=== PATIENT | female | born 1960 | race Caucasian/White ===

== ENCOUNTER 2021-01-11 10:42 | Emergency (ER) | payer OTHER ==
[~2021-01-11] VITALS: Ht 175.3 cm; Wt 88.5 kg
[2021-01-11] MEDS ORDERED: HUMALOG100 UNIT/2 SUB-Q (13:56)
== END 2021-01-11 17:38 | disposition home or self-care (01) ==
LOC: ED 10:42
DX: E10.621 Type 1 diabetes mellitus with foot ulcer (principal); L97.521 Non-pressure chronic ulcer of other part of left foot limited to breakdown of skin; R06.02 Shortness of breath; J44.9 Chronic obstructive pulmonary disease, unspecified; I50.9 Heart failure, unspecified; I25.2 Old myocardial infarction; Z85.3 Personal history of malignant neoplasm of breast; Z90.710 Acquired absence of both cervix and uterus; Z95.1 Presence of aortocoronary bypass graft; Z95.5 Presence of coronary angioplasty implant and graft; Z88.0 Allergy status to penicillin; Z88.8 Allergy status to other drugs, medicaments and biological substances; Z89.431 Acquired absence of right foot
CPT/HCPCS: 73630; 80053; 80500; 85025; 85651; 94640; 99283-25; 99406

== ENCOUNTER 2021-01-25 16:35 | Inpatient (IN) | payer OTHER ==
[~2021-01-25] VITALS: Ht 175.3 cm; Wt 95.4 kg
[~2021-01-25 16:35] MED LIST: HUMALOG100 UNIT/2 SUB-Q
--- OUTSIDE RECORDS SUMMARY | 2021-01-25 16:42 | XMS ---
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 - 2 Visits in 30 Days CARE PROVIDERS There are no care providers on record at this time. Kanchan has no Care Guidelines for this patient. Miguel VISIT COUNT (12 MO.) 1 [facility] NOTE: Visits indicate total known visits. 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 - Acquired absence of both cervix and uterus - Non-pressure chronic ulcer of other part of left foot limited to breakdown of skin - Personal history of malignant neoplasm of breast - Presence of coronary angioplasty implant and graft - Chronic obstructive pulmonary disease, unspecified - Non-pressure chronic ulcer of other part of left foot limited to breakdown of skin [facility] COMPLAINT: - LEG PAIN - Foot Pain DIAGNOSES: - Unspecified otitis externa, left ear - Presence of unspecified artificial ankle joint - Periprosthetic fracture around other internal prosthetic joint, initial encounter - Otitis media, unspecified, left ear - Unspecified mastoiditis, unspecified ear INPATIENT VISIT TRACKING (12 MO.) No inpatient visits to display in this time frame [email or web address]
--- NOTE | 2021-01-25 21:40 | NUR ---
PT ARRIVES TO FLOOR VIA STRETCHER. PT ABLE TO STAND AND TRANSFER TO THE BED. PT DAUGHTER PRESENT WITH HER. MD TO ROOM TO SEE PT. ADMISSION PROCESS COMPLETE. L FOOT WITH WOUND BETWEEN GREAT AND 2ND TOES, AND X 2 ON INNER FOOT. AREAS CLEANSED AND COVERED WITH NONADHERENT DRESSING, KERLEX, AND COVERED WITH SOCK. AREAS ARE PAINFUL FOR PT, PT TOLERATED DRESSING CHANGE WELL. PT ORIENTED TO ROOM, CALL LIGHT USE, AND POC FOR THIS FLOOR. PT STATES UNDERSTANDING. DENIES QUESTIONS. IV FLUSHED WITH 10ML NS, NO BLOOD RETURN NOTED, FLUSHES WELL, WNL. ICE WATER PROVIED. PT DENIES FURTHER AT THIS TIME. CALL LIGHT IN REACH.
--- NOTE | 2021-01-25 23:36 | NUR ---
IN TO ASSIST WITH COMMODE NEEDS, BACK TO BED, NO FURTHER NEEDS
--- NOTE | 2021-01-26 00:12 | NUR ---
pt awakes easily, on room air, lungs dim at bases, sl L upper arm, patent, aware of 1600 fluid restriction. cbg 111, no coverage needed, up to bsc with assist, uses call lihgt, pleasant and cooperative. no c/o pain. edema to LE
--- NOTE | 2021-01-26 01:46 | NUR ---
Up to bsc, voided, coop wtih vitals and assesment, tele#[address], edema to le w/o changes. on room air, no c/o pain
--- NOTE | 2021-01-26 04:35 | NUR ---
Resting, eys closed, no distress. call light at hand reach, pt aware of fluid restriction
--- NOTE | 2021-01-26 06:16 | NUR ---
Pt has slept this shift. On room air, lungs with fine crackles upper lobes and at bases, no cough at this time. bruising over amrs and legs healing. edema LE 3+. R foot with surgical removed toes, ulcer on L toes covered with gauze. unsteady gait,elevated. up to BSC, voiding QS, SBA/FWW. alert and oriented. no c/o pain. aware of fluid restriction.
--- NOTE | 2021-01-26 07:30 | NUR ---
Shift report received from HAWK Shipman pt resting in bed safely w/ call light in reach. Pt denies any needs at this time.
[2021-01-26] MEDS ORDERED: BUMETANIDE1 MG PO (07:45)
[2021-01-26] MEDS ORDERED: LOSARTAN POTASS25 MG PO (07:46)
[2021-01-26] MEDS ORDERED: HYDROCODON-ACE1 EA10 PO (07:46)
[2021-01-26] MEDS ORDERED: METOPROLOL TART25 MG PO (07:47)
[2021-01-26] MEDS ORDERED: SPIRONOLACTONE25 MG PO (07:47)
[2021-01-26] MEDS ORDERED: NITROGLYCERIN0.4 MG SL (07:48)
[2021-01-26] MEDS ORDERED: LO-DOSE ASPIRIN81 MG PO (07:49)
[2021-01-26] MEDS ORDERED: FREESTYLE LIBR1 EAC2 (07:49)
--- NOTE | 2021-01-26 08:00 | NUR ---
Pt's CBG was 49 at 0730, pt given a cup of OJ to drink, CBG rechecked after 15 minutes now 64, pt given breakfast tray, CBG rechecked again after 15 minutes now 84. Pt was very diaphoretic but A+O x3, gown and bed linens changed. Pt no longer diaphoretic, states she feels better. SBA to [facility], now back in bed resting safely w/ call light in reach
--- NOTE | 2021-01-26 08:28 | NUR ---
PT ATE BREAKFAST IN BED. PT HAD BEEN OFFERED CHAIR SEVERAL TIMES AND REFUSED. CALL LIGHT WITHIN REACH, NO FURTHER NEEDS AT THIS TIME. WARM BLANKETS BROUGHT.
--- NOTE | 2021-01-26 09:11 | NUR ---
PT SITTING UP IN BED PLAYING ON PHONE. TOOK LUNCH ORDER. CALL LIGHT WITHIN REACH, NO FURTHER NEEDS AT THIS TIME.
--- NOTE | 2021-01-26 09:30 | NUR ---
Pt resting in bed safely w/ call light in reach. Morning assesment complete and scheduled meds given per provider order, pt denies any needs at this time. 3+ pitting edema bilat LE, legs elevated on pillows.
--- NOTE | 2021-01-26 12:00 | NUR ---
Pt sitting up in bed safely w/ call light in reach and legs elevated. Pt denies any needs at this time, scheduled meds given per provider orders.
[2021-01-26] MEDS ORDERED: NEURONTIN300 MG PO (12:47)
[2021-01-26] MEDS ORDERED: FUROSEMIDE40 MG PO (12:47)
[2021-01-26] MEDS ORDERED: HUMALOG100 UNITS/ SUB-Q (12:50)
[2021-01-26] MEDS ORDERED: METOCLOPRAMIDE10 MG PO (12:57)
--- NOTE | 2021-01-26 12:57 | NUR ---
MED REC COMPLETE
--- NOTE | 2021-01-26 13:02 | NUR ---
MED REC COMPLETE
--- NOTE | 2021-01-26 14:00 | NUR ---
Pt sitting up in bed safely w/ call light in reach and legs elevated, pt's daughter in room, scheduled meds given per provider order, pt denies any other needs at this time.
--- NOTE | 2021-01-26 16:00 | NUR ---
Pt assisted w/ set up only able to sit down and shower independently. Pt now back in bed resting safely w/ call light in reach and daughter at bedside. Wound carfe completed on L foot per provider orders.
--- NOTE | 2021-01-26 16:08 | NUR ---
HAWK XAVIER ASSISTED THIS MACHINE TRACER IN PREPPING FOR PT'S SHOWER. PT'S DAUGHTER, WHO WAS IN THE ROOM, ASSISTED THE PT BEFORE, DURING, AND AFTER SHOWER. IN BETWEEN TOES DRIED WELL. CALL LIGHT WITHIN REACH, NO FURTHER NEEDS AT THIS TIME. BR AND FLOOR TIDIED AND DRY
--- NOTE | 2021-01-26 18:00 | NUR ---
Pt resting safely in bed w/ call light in reach, no needs at this time
--- NOTE | 2021-01-26 19:51 | NUR ---
PT AWAKE, ON ROOM AIR, LEFT UPPER ARM IV SL PATENT. TOLERATING FLUID RESTRITION, USES CALL LIGHT, EDEMA TO LE 3+, INSTRUCTED ON BENEFITS OF ELEVATING LE. STATED UNDERSTANDING. C/O H/A, FOOT PAIN, WILL NOTIFY DR BANKS. RT IN ROOM
--- NOTE | 2021-01-26 19:58 | NUR ---
DR BANKS NOTIFIED OF PTS C/O PAIN, WROTE NEW ORDERS FOR TYLENOL 500MG PO PRN
--- NOTE | 2021-01-26 20:13 | NUR ---
c/o 7/10 feet pain, medicated with tylenol 500mg po, up to bsc, voiding QS. cbg 161 received 1 unit ss Humolog and 20 units Semglee. pt recited back s/sx hypoglycemia.
--- NOTE | 2021-01-26 22:44 | NUR ---
stated her L foot dressing came off, had declined earlier. dressing done, no changes from admission yesterday. area covered with dressing, kerlix and coban elevated with pillows. cooperative. no further c/o pain
--- NOTE | 2021-01-26 23:28 | NUR ---
uP TO BSC, VOIDED SMALL AMOUNTS YELLOW URINE, NEEDED HELP WITH BEDCOVERS, LEGS ELEVATED W PILLOW. TOLERATING FLUID RESTRICTION, CALL LIGHT AT HANDS REACH. NO C/O PAIN
--- NOTE | 2021-01-27 01:27 | NUR ---
ON ROOM AIR, NO DISTRESS, EYES CLOSED, CALL LIGHT AND FLUIDS AT BEDSIDE, VOIDING SMALL FREQUNET AMOUNTS OF YELLOW URINE, USES BSC. DRESSING INTACT L FOOT, LEGS ELEVATED. CALL LIGHT AT HANDS REACH
--- NOTE | 2021-01-27 02:48 | NUR ---
PT USED CALL LIGHT, SITTING EDGE OF BED, " I NEED TO CHECK MY BLOOD SUGARS" STATED. CBG 98, CRACKERS AND JELLO GIVEN ON REQUESTS. DIAPHORETIC SKIN. ALERT AND ORIENTED. SKIN DIRED, COMPLETE BED LINEN CHANGED AND FRESH GOWN. WARM BLENKET GIVEN ON RETURN TO BED. ROOM TEMP 76, DENIES ANY C/O PAIN. COOP WITH ASSESSMENT. ON ROOM AIR, LUNGS MUCH IMPROVED, DECREASED EDEMA TO L FOOT, DRESSING IN PLACE. ELEVATED. TOLERATING FLUID RESTRICTION
--- NOTE | 2021-01-27 04:50 | NUR ---
On room air, no distress, eyes closed, fluids and call light at bedside
--- NOTE | 2021-01-27 05:44 | NUR ---
pt has slept off and on, on room air, clear lungs, occassional moist nonproductive cough, cbg was 161 received ss insulin and 20 units Semglee scheduled, c/o low blood sugars mid shift, cbg 98, was diaphoretic, bed linen and gown changed. snacks given. denies s/sx low blood sugar at this time. Pt very aware of s/sx hypo/hyperglycemia. snacks given. SBA in room, voiding QS, decreased edema LE noted, 3+ edema still present, amputaion of R toes, dressing to Left toes done. elevated wtih pillows. compliant with fluid restriction. pleasant and coop, uses call light
--- NOTE | 2021-01-27 06:29 | NUR ---
Repositioned in bed, medicated with 2.5mg Flexeril per c/o back pain. Oxycodone not effective as per pts statement. has been repositioned many times. tolerating sips of fluids. IVF infusing, f/c with 100cc more urine since 329
--- NOTE | 2021-01-27 09:36 | NUR ---
IN TO SEE PT, MEDICATION DUE. PT GIVEN PRN 500MG TYLENOL PER REQUEST FOR 8/10 LEFT FOOT PAIN. BUMEX ADMINISTER IV AT THIS TIME. PT RESTING AT THIS TIME. NO OTHER NEEDS OR REQUESTS AT THIS ITME. BED RAILS X 2 UP. CALL LIGHT IN REACH.
--- NOTE | 2021-01-27 10:19 | NUR ---
IN TO SEE PT, AM MEDICATIONS AND ASSESSMENT DUE. PT RIGHT LOBE WITHCOARSE CRACKLE NOTED, OTHERWISE CLEAR TO AUSCULTATION THROUGOUT. PT DENIES ANY SOB AT THIS ITME. PT COCNITUES TO HAVE EDEMA TO LLE 1+ AND NON-PITTING EDEMA TO RLE. HR REGULAR. PT REPORTS PAIN TO LEFT FOOT /, PT GIVEN PRN TYLENOL BY PREVIOUS RN, TOO EARLY TO GIVE NEXT PRN. PT ACCEPTED 100% BREAKFAST. 5 UNITS MEALTIME INSULIN GIVEN PER ORDER, SSI INSULIN HELD PER ORDER; PT AM BS 88. PT ALERT AND OREITNED X 3. PLEASNAT AND COOPERATIVE WITH STAFF AND CARES. PT ACCEPTED 250MLS FLUID FOR BREAKFAST PER FLUID RESTICTION. PT COMPLIANT WITH FLUID RESTRICTION AT THIS TIME. PT LAYING DOWN IN BED AT THIS TIME. NO OTHER NEEDS OR CONCERNS AT THSI TIME. BED RAILS X 2 UP, CALL LIGHT IN REACH.
--- NOTE | 2021-01-27 11:46 | NUR ---
IN TO CHECK ON PT, PT REPORT SILVERIO RESOLVED, PAIN TO LEFT FOOT REMINS 8/. PT UP TO BSC AT THIS TIME AND BACK TO BED. NO OTHER NEEDS OR COCNERNS AT THIS ITME. CLAL LIGHT IN REACH.
--- NOTE | 2021-01-27 13:16 | NUR ---
IN TO SEE PT. PT LAYING IN BED WITH HOB ELEVATED AND LEGS SLIGHTLY ELEVATED WITH BED AND UP ON PILLOWS WATCHING TV. NO NEEDS OR COCNERS AT THIS TIME. BED RAILS X 2 UP, CALL LIGHT IN REACH.
--- NOTE | 2021-01-27 14:38 | NUR ---
[place] 5/325mg po admin for reports of 7/10 LLE pain.
--- NOTE | 2021-01-27 15:16 | NUR ---
Left foot dressing changed per provider order. Patient tolerated well. No drainage noted to wound of left foot. Patient tolerated well.
--- NOTE | 2021-01-27 17:07 | NUR ---
in to see pt. pt up to bsc, daughter at bedside. blood glucose obtained. blood sugar 164. pt in bed hob elevated visitng with daughter and watching tv. legs elevated on pillows. no other needs or requests at this time. call light in reach.
--- NOTE | 2021-01-27 17:14 | EKG ---
[facility] [address] [place], [place] [address] Signed Sinus rhythm with occasional premature ventricular complexes ST \T\ T wave abnormality, consider inferolateral ischemia Abnormal ECG No previous ECGs available Confirmed by AARON BANKS MD ([id number]) on 01/27/2021 5:14:14 PM Electronically Signed By: AARON BANKS MD 01/27/21 1714 PATIENT NAME: SANCHONILAY ASHLEY Electrocardiogram DATE OF : 56 PHYSICIAN: AARON BANKS MD REPORT #: [id number] REPORT IS CONFIDENTIAL AND NOT TO BE RELEASED WITHOUT AUTHORIZATION
--- NOTE | 2021-01-27 18:30 | NUR ---
PT ON PHONE IN BED. CALL LIGHT WITHIN REACH, NO FURTHER NEEDS AT THIS TIME.
--- NOTE | 2021-01-27 20:50 | NUR ---
ON ROOM AIR, GETS NEBD. DRY NON PRODUCTIVE COUGH NOTED, LUNGS CLEAR XCEPT RIGHT UPPER LUNG WITH INSPIRATORY FINE CRACKLES. OTHERWISE CLEAR. C/O FEET PAIN, MEDICATED WITH TYLENOL 500MG PO, DRESSING L TOES IN PLACE, CDI. DESENEX APPLIED TO TOES ORDERED. ELEVATED IN PILLOWS 3+ EDEMA. RED ABOVE ANKLES BILAT. SBS/BSC. UP TO BSC, VOIDING SMALL AMOUNT YELLOW URINE. QS. SL L UPPER ARM PATENT. COMPLIANT WITH FLUID RESTRICTION. USES CALL LIGHT. ALERT AND ORIENTED
--- NOTE | 2021-01-27 22:35 | NUR ---
repositions self in bed, LE elevated in pillows. c/o 7/10 feet pain, medicated with norco 1 tab. wants L foot dressing changed in 1/2 hr. dressing intact. tolerating fluid restriction
--- NOTE | 2021-01-28 00:50 | NUR ---
Awake, watching TV, no c/o pain, on room air. dressing to L foot done at her requests. cooperative. encouraged to keep leg elevated. stated understanding
--- NOTE | 2021-01-28 02:29 | NUR ---
RESTING, EYES CLOSED, TURNS AND REPOSITIONS SELF IN BED. ON ROOM AIR. CALL LIGHT AND FLUIDS AT BEDSIDE. LEGS FLAT IN BED, TAKEN PILLOW OFF LE. USES BSC
--- NOTE | 2021-01-28 03:50 | NUR ---
PT USED CALL LIGHT C/O NEEDING TO HAVE BLOOD SUGARS CHECK BECAUSE SHE WAS VERY WET AND NEEDED BED CHANGED. pT SITTING ON EDGE OF BED, HAD USES BSC, NO DISTRESS. DIAPHORETIC SKIN. SKIN DRIED, WHOLE BED AND GOWN CHANGED THEY WERE VERY MOIST WITH SWEAT. DRIED OWN SKIN. BACK TO BED, L LEG ELEVATED WITH PILLOWS. CBG 201. VOIDING QS. NO BM THIS SHIFT. TOLERATING FLUID RESTRICTION. C/O BACK PAIN, MEDICATED WITH TYLENOL 500MG PO
--- NOTE | 2021-01-28 06:29 | NUR ---
pt medicated at this time with [place] 1 tab per L foot pain. Up to bsc, voiding QS, Pt on room air, lungs much improved, clear bilat. dry cough present. 3+ edema to L LE, dressing changed this am at pts requests, improving. edema 2+ R LE, missing toes R foot. legs elevated off and on, cont. to reinforce. SBA/FWW. uses BSC. voiding QS, no bm this shift. SL L upper arm intact, patent. CBG 182 at begining of shift, received 2 units humolog ss insulin and 15 units Semglee. c/o being diaphoretic mid shift, gown and linen changed. CBG at that time was 201. Has tolerated fluid restriction well. Medicated with Tylenol and [place] with fair to good pain relief. call light at bedside
--- NOTE | 2021-01-28 07:36 | NUR ---
Patient resting in bed, eyes closed, respirations even and non labored. Patient has no distress at this time. Personal supplies and call light within reach.
--- NOTE | 2021-01-28 08:22 | NUR ---
Patient sitting up at bedside eating breakfast, no distress. Morning medication pass done at this time. Patient reported LLE pain is tolerable at this time. No sob or chest pain reported. Patient has no current needs. Patient to have an echo here shortly, updated pt with plan of care. No current needs. Personal supplies and call light wihtin reach.
--- NOTE | 2021-01-28 10:09 | NUR ---
PATIENT IN BED RESTING WITH EYES CLOSED. VITALS TAKEN BY RN. I&O'S CHARTED. CALL LIGHT IN REACH. NO FURTHER NEEDS AT THIS TIME.
--- NOTE | 2021-01-28 11:15 | NUR ---
I was able to meet with Arpita this morning regarding her care at the hospital. Arpita is very happy with the care she is receiving here in the hospital. She stated "My care has been above board, every body has been patient with me and has helped me." We did discuss Arpita's wishes for a PCP in this area as she is new in this area. She would like to see Dr Gordillo, who is also currently her hospitalist while being admitted to the hospital. We will follow-up with this request with the [facility]. Arpita also shared that she lives with her adult daughter who is able to help her with personal needs, cleaning, laundry etc. She also shared that when she is feeling well she is basically independant, and still drives. Arpita and her daughter recently moved to [place] from [place].
--- NOTE | 2021-01-28 13:21 | NUR ---
Patient ambulated in hallway using walker from home. Patient tolerated x1 lap well.
--- NOTE | 2021-01-28 13:39 | NUR ---
PATIENT UP TO BSC AND BACK TO BED, IND. VITALS AND I&O'S CHARTED. CALL LIGHT IN REACH. NO FURHTER NEEDS AT THIS TIME.
--- NOTE | 2021-01-28 14:00 | NUR ---
[place] 5/325mg po admin for LLE pain. Patient requesting a short nap.
--- NOTE | 2021-01-28 14:16 | NUR ---
PT WAS GETTING READY TO TAKE A NAP-SPENT A SHORT TIME WITH HER. SHE IS ALERT,' ORIENTED AND MENTIONED NEW TO THE AREA. SHE LIVES WITH HER DAUGHTER. PT IS FRUSTRATED WITH HER HEALTH, GOT EMOTIONAL WHEN SHE BEGAN TO TALK ABOUT IT. GAVE ENCOURAGEMENT AND PT REQUESTED PRAYER. ALSO GAVE PT A Kostas DICKSONPOST AND BLESSIGN. WILL CONTINUE TO FOLLOW
--- NOTE | 2021-01-28 16:42 | NUR ---
Left foot dressing changed per provider order, patient tolerated well. Old dressing had no active drainage noted on dressing. Wound is dry and appears to be healing.
--- NOTE | 2021-01-28 17:20 | NUR ---
Tylenol 500mg po admin for Left foot pain.
--- NOTE | 2021-01-28 18:43 | NUR ---
Patient visiting with daughter at this time. No current needs.
--- NOTE | 2021-01-28 19:00 | NUR ---
BEDSIDE REPORT RECEIVED FROM OFFGOING RNJOVANY. PT RESTING IN BED. WATER REFILLED PER REQUEST. FURTHER NEEDS DENIED. CALLLIGHT IN REACH.
--- NOTE | 2021-01-28 19:01 | NUR ---
Patient's BP was 121/41. MAP was 58. Pulse was 79. Right arm. RN was notified.
--- NOTE | 2021-01-28 20:28 | NUR ---
PT ASSESSMENT C OMPLETE. PT UTILIZES CALL LIGHT, REQUESTS SNACK AND PRN PAIN MEDCIATION, ADMINISTERED, SEE EMAR. PT RATES PAIN 7/10 TO L FOOT. PT REPORTS OCCASIONAL COUGH, NOT NOTED DURING THIS ASSESSMENT. PT REPORTS OCCASIONAL NAUEA THAT COMES AND GOES NONE DURING THIS ASSESSMENT. LUNG SOUNDS COARSE THROUGHOUT. IV FLUSHED, NO BLOOD RETURN NOTED, PATENT, WNL. PT REPORTS CHRONIC NUMBNESS AND TINGLING TO HANDS THAT COMES AND GOES, CONSTANT NUMBNESS/TINGLING/BURNING TO BLE. PT UP TO BSC INDEPENDENTLY, TOLERATED WELL. SITTING EATING SNACK AT EDGE OF BED. PT DENIES FURTHER NEEDS. CALL LIGHT IN REACH.K
--- NOTE | 2021-01-28 23:58 | NUR ---
PT RESTING IN BED WITH EYES CLOSED, LYING ON HER R SIDE. RESPIRATIONS EVEN AND UNLABORED. PT APPEARS TO BE ASLEEP, DOES NOT WAKE WHILE [employer] AT DOORWAY. CALL LIGHT IN REACH.
--- NOTE | 2021-01-29 02:38 | NUR ---
PT ASSESSMENT COMPLETE. PT REPORTS PAIN 7/10 TO L FOOT AND L SHOULDER. PT STATES THAT NEW ONSET L SHOULDER PAIN HAS BEEN COMING AND GOING SINCE LAST NIGHT. SHE STATES SHE THINKS IT IS FROM PUSHING OFF OF BED WITH L ARM TO GET TO EDGE OF BED. WARM COMPRESS ALSO PROVIDED TO L SHOULDER. PT REPORTS SLIGHT SOB AND VOICE BEING HOARSE. PRN BREATHING TREATMENT ADMINISTERED BY RT. LUNG SOUNDS CLEAR THROUHGOUT. NO COUGH NOTED DURING ASSESSMENT. PT REPORTS OCCASIONAL NAUSEA THAT COMES AND GOES. SHE STATES THIS IS CHRONIC FOR HER, SHE ASSOCIATES IT WITH ANXIETY AND DEPRESSION. PT DISCUSSES A LOT OF MAJOR LIFE CHANGES RECENTLY INCLUDING MOVE FROM [place]. SHE EXPRESSES FEAR AND ANXIETY REGARDING DRIVING TO PODIATRY APPOINTMENT. SHE STATES THAT SHE FEELS IT WOULD BE EASIER TO CANCEL THE APPOINTMENT THAN TO DRIVE THEIR HERSELF. THERAPEUTIC COMMUNICATION PROVIDED. PT THANKFUL. DRESSING CHANGE PERFORMED TO L FOOT PER ORDER. PT TOLERATED WELL. PT DENIES FURTHER NEEDS AT THIS TIME. CALL LIGHT IN REACH.
--- NOTE | 2021-01-29 06:03 | NUR ---
PT ROUNDING. PT RESTING IN BED WAKES EASILY WHEN INDUSTRIAL EQUIPMENT WIRER ENTERS THE ROOM. PT REPORTS LINGERING PAIN IN L BRUCE AND HEEL. RATES 09/01. REQUESTS PRN, ADMINISTERED. PT DENIES FURTHER NEEDS AT THIS TIME. CALL LIGHT IN REACH.
--- NOTE | 2021-01-29 07:51 | NUR ---
Patient awake playing on her phone, no distress. Patient reports left foot pain is tolerable at this time. Patient has legs elevated. No current needs. Personal supplies and call light within reach.
--- NOTE | 2021-01-29 08:49 | NUR ---
[place] 5/325mg po admin for left foot pain.
--- NOTE | 2021-01-29 09:56 | NUR ---
PATIENT IN BED AT THIS TIME. VITALS AND I&O'S CHARTED. CALL LIGHT IN REACH. NO FURTHER NEEDS AT THIS TIME.
--- NOTE | 2021-01-29 10:30 | NUR ---
Spoke with pt. She is in a need of a Dr. as she and her daughter recently moved to [place] from [place]. She would like Dr. Gordillo for her pcp. She also would like to have a Nebulizer. She would like [facility] for DME. Spoke with Dr Gordillo and he agrees to be this pt's pcp. He also agrees pt will need a nebulizer and will complete the correct papper work. Per Dr. Gordillo, this pt will stay 1-2 more days.
--- NOTE | 2021-01-29 10:40 | NUR ---
Spoke with pt, she states she recently moved to [place]. Her daughter was hired by the [employer] service and picked her up from [place]. Job started in Dec. Their house is being built and they are staying at the [facility]. She does not know the address of either and has texted her daughter. I will follow up later as will need current address if pt needs DME.
--- NOTE | 2021-01-29 12:56 | NUR ---
[facility]ed [facility] schedule [facility]t [facility] pt to [facility] and for hospital follow up. Faxed Face sheet, ER note, H&P, and notes. They will call me back with appt.
--- NOTE | 2021-01-29 13:15 | NUR ---
Certified Heart Failure Nurse Notes: Diagnosis: Heart failure PCP:Patient states she will establish with Dr Gordillo Echocardiogram pending Admit BNP:1000 Social support system: Living with daughter . Will move to daughter s new home in [place] in Feb. Weight monitoring: Scale not present in home. Medline digital scale given to patient to use at home instructed how to weigh daily/ when to notify PCP Symptom management: Addressed monitoring and reporting changes in weight or symptoms utilizing Zones form Transportation mode: Has car, needs to become familiar with this area to comfortably go out alone. Diet: Dines out most meals due to temporarily living in hotel. Discussed options of increasing nutrition and decreasing sodium until moved into the house. Medication routine: uses alarms and has day pill box. Advanced directive: Not discussed at this initial visit Recommendations prior to discharge: cosmetology educator consultation. Patient requesting information on carbs. f Document ambulation oxygen saturations prior to discharge Absence of orthostatic hypotension. Discharge weight less than admit weight. Discharge BNP less than admit (as per [facility] Heart Failure DC Bundle) Barriers to self-care include: Transitional living situation without kitchen. Foot wounds. Follow-up plans: Patient agrees to receive a follow up call from this service. Patient would be welcome for complimentary outpatient heart failure education. I have put a call into [facility] for diabetic educaiton assistance. Teaching materials given : [facility] Heart Failure bundle folder-[facility] My Action Plan Living Well with Heart Failure book, Daily weight and symptom monitoring log, Zones magnet, [facility] contact information Low Sodium Shopping list. Spices, Frozen meal options. Medline digital scales .
--- NOTE | 2021-01-29 13:53 | NUR ---
PATIENT IN BED WATCHING TV. VITALS AND I&O'S CHARTED. CALL LIGHT IN REACH. NO FURTHER NEEDS AT THIS TIME.
--- NOTE | 2021-01-29 15:42 | NUR ---
PATIENT GIVEN 4MG OF IV ZOFRAN FOR NAUSEA.
--- NOTE | 2021-01-29 16:07 | NUR ---
[place] one tab 5/325mg po admin for reports of 7/10 left foot pain.
--- NOTE | 2021-01-29 16:38 | NUR ---
Left foot dressing changed per provider order. Patient tolerated well.
--- NOTE | 2021-01-29 18:39 | NUR ---
PATIENT IN BED WATCHING TV. VITALS AND I&O'S CHARTED. CALL LIGHT IN REACH. NO FURTHER NEEDS AT THIS TIME.
--- NOTE | 2021-01-29 19:05 | NUR ---
RECEIVED REPORT FROM DAY SHIFT RN. PATIENT IS RESTING IN BED WATCHING TV. PATIENT DENIES ANY NEEDS. CALL LIGHT IN REACH.
--- NOTE | 2021-01-29 20:05 | NUR ---
PATIENT ASKED HER SNACK FRUIT AND COTTAGE CHEESE, GIVEN AND WATER 300CC PROVIDED.
--- NOTE | 2021-01-29 21:30 | NUR ---
PATIENT ASSESMENT COMPLETED. VITALS TAKEN AND RECORDED. BSC EMPTIED. INTAKE AND OUTPUT RECORDED. PATIENTS IV IS SL AND IV FLUSHES WELL. PATIENT RATES PAIN AT A 6/10 PRN TYLENOL GIVEN PER ORDER. SCHEDULED MEDICATION GIVEN PER ORDER. PATIENT DENIES ANY FURTHER NEEDS. CALL LIGHT IN REACH.
--- NOTE | 2021-01-29 22:30 | NUR ---
PATIENT RATES PAIN AT A 5/10. PRN PAIN MEDICATION GIVEN PER ORDER. PATIENT IS RESTING IN BED. PATIENT DENIES ANY FURTHER NEEDS NOTED. CALL LIGHT IN REACH.
--- NOTE | 2021-01-29 23:22 | NUR ---
PATIENT IS RESTING IN BED WITH EYES CLOSED, RR 19. CALL LIGHT IN REACH.
--- NOTE | 2021-01-30 01:36 | NUR ---
PATIENTS DRESSING CHANGED ON LEFT FOOT PER ORDER. PATIENT TOLERATED ACTIVITY WELL. PATIENT DENIES ANY FURTHER NEEDS. CALL LIGHT IN REACH.
--- NOTE | 2021-01-30 03:26 | NUR ---
PATIENT IS RESTING IN BED WITH EYES CLOSED, RR 19. CALL LIGHT IN REACH.
--- NOTE | 2021-01-30 06:21 | NUR ---
PATIENTS VITALS TAKEN AND RECORDED. PATIENTS INTAKE AND OUTPUT RECORDED. PATIENTS DW OBTAINED AND RECORDED. PATIENT RATES PAIN AT A 5/10. PRN PAIN MEDICATION GIVEN PER ORDER. PATIENT IS RESTING IN BED. PATIENT DENIES ANY FURTHER NEEDS. CALL LIGHT IN REACH.
--- NOTE | 2021-01-30 07:30 | NUR ---
Shift report received from HAWK Barajas pt sitting up in bed safely w/ call light in reach, pt denies any needs at this time
--- NOTE | 2021-01-30 07:51 | NUR ---
PT CURRENTLY WORKING WITH RT. CALL LIGHT WITHIN REACH, NO FURTHER NEEDS. WHITE BOARD UPDATED. WILL CHECK BACK IN WITH PT SOON.
--- NOTE | 2021-01-30 09:14 | NUR ---
PT SITTING UP IN BED WATCHING TV. CALL LIGHT WITHIN REACH, NO FURTHER NEEDS AT THIS TIME. HAWK XAVIER NOTIFIED OF LOW OUTPUT.
--- NOTE | 2021-01-30 09:30 | NUR ---
Pt sitting up in bed w/ call light in reach. Morning assesment complete and scheduled meds given per provider order. Pt denies any needs at this time
--- NOTE | 2021-01-30 12:00 | NUR ---
Pt sitting up on side of bed safely, eating lunch, call light in reach, pt denies any needs at this time
--- NOTE | 2021-01-30 12:40 | NUR ---
Spoke with Physician clinic staff, they scheduled pt with Dr. Gordillo for Thu. at 3:45 to establish care and for Fu visit from hospitalization.
--- NOTE | 2021-01-30 13:53 | NUR ---
PT SLEEPING. CALL LIGHT WITHIN REACH, NO FURTHER NEEDS
--- NOTE | 2021-01-30 14:30 | NUR ---
Pt c/o nausea, PRN medication given per pt request. Pt sitting up on side of bed w/ call light in reach, no further needs at this time
--- NOTE | 2021-01-30 16:00 | NUR ---
Pt sitting up in bed w/ call light in reach, daughter at bedside, pt denies any needs at this time.
--- NOTE | 2021-01-30 16:21 | NUR ---
PREPPED PT'S BR FOR SHOWER. WRAPPED IV SITE AND L FOOT. AMBULATED PT TO SHOWER. LINENS CHANGED. DRIED BR FLOOR AND PT'S FEET. AMBULATED PT BACK TO BED. PT DRESSED BY THEMSELF. DAUGHTER IN ROOM. TIDIED ROOM, TIDIED BR. DAUGHTER IN ROOM. CALL LIGHT WITHIN REACH, NO FURTHER NEEDS AT THIS TIME.
--- NOTE | 2021-01-30 16:23 | NUR ---
Face sheet, RX, H&P, Progress notes faxed to Haily at [facility]. Called and updated pt is staying in the [facility] until house is built. Asked if [facility] could deliver the Nebulizer and meds to the hospital in the AM. Per Haily Keating requires preauth and she will let me know.
--- NOTE | 2021-01-30 18:00 | NUR ---
Pt resting in bed safely w/ call light in reach, pt finished eatig dinner, scheduled insulin given per provider orders, pt denies any further needs at this time
--- NOTE | 2021-01-30 18:27 | NUR ---
PT WATCHING TV IN A DOCILE MOOD. CALL LIGHT IN REACH, NO FURTHER NEEDS AT THIS TIME.
--- NOTE | 2021-01-30 20:04 | NUR ---
in to see pt, pt sleepin jameel left side with eyes closed. nurse hand off report recieved. call light in reach.
--- NOTE | 2021-01-30 22:09 | NUR ---
IN TO SEE PT, ASSESSMENT AND SCHEDULED MEDICATIONS DUE. PT ALERT AND OREITNED X 4. SNACKS PROVIDED. PT REPORTS PAIN TO LEFT FOOT 09/01, GIVEN PRN NORCO PER REQUEST. I AND O'S COMPLETED. PT SITTING UP IN BED WATHIVN TV, HOB ELEVTAED. NO OTHER NEEDS OR REQUEST AT THIS TIME. CALL LIGHT IN REACH.
--- NOTE | 2021-01-30 23:05 | NUR ---
in to check on pt. pt sitting up in bed with hob elevated. pt watching tv. pt reports pain continues to be 7/10 in left foot at this time. no other needs or requests. call light in reach.
--- NOTE | 2021-01-31 00:02 | NUR ---
IN TO SEE PT. ASSISTED PT WITH TAKING OFF HER PANTS. BSC EMPTIED. PT C/O NAUSEA WITH DULL STOMACH PAIN. PT C/O DIZZINESS. PT REPORTS PAIN INCREASED TO 8/10 TO LEFT FOOT. PRN TYLENOL GIVEN PER REQUEST AND ORDER. PRN ZOFRAN GIVEN PER ORDER. PT PROVIDED HEEL PROTECTORS AT THIS TIME. PT REPORTS DIZZINESS HAS RESOLVED. VSS. BS CHECKED PRN, BS 209. NO OTHER NEEDS OR REQUESTS AT THIS TIME. CALL LIGHT IN REACH.
--- NOTE | 2021-01-31 02:46 | NUR ---
IN TO SEE PT. PT SLEEPING WITH EYES CLOSED ON LEFT SIDE. RR 16. NO SIGNS OF PAIN NOTED AT THIS TIME. CALL LIGHT IN REACH.
--- NOTE | 2021-01-31 06:25 | NUR ---
in to see pt, assessment due. pt c/o 10/02 pain to left foot. prn norco given per request. wound care to left foot completed per order. in btween toes shows improvement. great toe ulcer with stable eshcar dry and lateral side left wound foot dry. tolerated dressing change well. I and O's completed. fresh water provided. no other needs or requests at this time. call light in reach.
--- NOTE | 2021-01-31 07:30 | NUR ---
Shift report received from HAWK Farley/Brii, pt resting in bed safely w/ call light in reach. in room to evaluate pt's wounds on L foot and apply a dressing. Pictures taken and placed in chart, new wound care orders received from and updated. Pt denies any needs at this time
--- NOTE | 2021-01-31 08:49 | NUR ---
Patient participated in AM care with washing their face with a warm wash cloth.
--- NOTE | 2021-01-31 09:15 | NUR ---
Pt sitting up on side of bed eating breakfast, call light in reach. Morning assesment completed and scheduled meds given per provider order. in room to asses pt, pt updated w/ POC. Pt agreeable and denies any further needs at this time
--- NOTE | 2021-01-31 10:30 | NUR ---
Patient via BSC SBA and independently wipped. Patient via back to bed and is now resting. Call light is in reach.
--- NOTE | 2021-01-31 11:30 | NUR ---
Received a call from Kristian from [facility] he is on his way to deliver pts nebulizer. Pt's insurance would not cover Duoneb through [facility]. Dr. Gordillo rewrote the order and I gave it to our pharmacy. [facility] pharmacist with check with Cynthia to see if med is covered.
--- NOTE | 2021-01-31 12:00 | NUR ---
Pt sitting up on side of bed eating lunch, call light in reach, no needs at this time
--- NOTE | 2021-01-31 13:30 | NUR ---
Notified by [facility] from pharmacy pts meds will be filled.
--- NOTE | 2021-01-31 14:15 | NUR ---
Pt resting in bed safely w/ call light in reach, cup of coffee given upon request, pt denies any further needs at this time
--- NOTE | 2021-01-31 16:12 | NUR ---
PT UP TO BSC IND, NO NEEDS AT THIS TIME, CALL LIGHT IN REACH
--- NOTE | 2021-01-31 18:31 | NUR ---
Pt resting in bed safely w/ call light in reach, pt c/o L foot pain 10/02, PRN pain meds given per request. Pt denies any further needs at this time
--- NOTE | 2021-01-31 19:05 | NUR ---
SHIFT REPORT RECEIVED FROM DAYSHIFT RN MORENITA AT BEDSIDE. pt AWAKE AND RESTING IN BED. ON RA, RR EVEN AND UNLABORED. LEFT FOOT DRESSING C/D/I, NO SLIP SOCKS IN PLACE. NO NEEDS VERBALIZED, CALL LIGHT IN REACH. BOARD UPDATED.
--- NOTE | 2021-01-31 20:10 | NUR ---
CALL LIGHT ANSWERED, pt ASSISTED WITH LEG POSITIONING. BLE REMAIN ELEVATED WITH PILLOWS IN PLACE. SUGAR FREE SNACK ALSO PROVIDED, CALL LIGHT IN REACH AND NO FURTHER NEEDS VERBALIZED. CALL LIGHT IN REACH.
--- NOTE | 2021-01-31 21:11 | NUR ---
PT CALLED [facility] TO REQUEST ASSISTANCE WITH STRAIGHTENING HER BLANKETS. PT ALERT AND ORIENTED, PLEASANT, SHE HAD NO OTHER REQUESTS AT THIS TIME.
--- NOTE | 2021-01-31 22:10 | NUR ---
ASSESSMENT COMPLETE, SCHEDLED MEDS GIVEN (SEE EMAR) ALONG WITH PRN NORCO FOR 8/10 PAIN IN LEFT FOOT. LEFT FOOT DRESSING REAMINS C/D/I, pt REFUSES TO ELEVATE BLE IN BED AT THIS TIME, STATING, "NO, I DON'T WANT TO ELEVATE THEM, I WANT TO TURN ON MY SIDE AND GO TO SLEEP". EDUCATION PROVIDED, pt CONTINUES TO REFUSE ELEVATION, WILL MONITOR. IV SITE WNL, FLUSHES EASILY. NO ADDITIONAL NEEDS. CALL LIGHT IN REACH.
--- NOTE | 2021-02-01 00:19 | NUR ---
ROUNDED ON pt, pt AWAKE AND ON BSC. pt INDEPENDENTLY STAND PIVOT FROM BSC BACK TO BED, STEADY ON FEET. pt DECLINES ELEVATING BLE WITH PILLOWS. THIS RN OFFERED TO ELEVATE BLE VIA BED POSITIONING, pt REFUSES THIS OFFER WELL. NO ADDITIONAL NEEDS, CALL LIGHT IN REACH. BSC EMPTIED AT THIS TIME.
--- NOTE | 2021-02-01 01:25 | NUR ---
pt RESTING IN BED WITH EYES CLOSED, RR EVEN AND UNLABORED. NO DISTRESS NOTED. CALL LIGHT IN REACH. pt INDEPENDENT IN ROOM.
--- NOTE | 2021-02-01 01:41 | NUR ---
CALL LIGHT ANSWERED, ASSISTED pt WITH ELEVATING BLE WITH PILLOWS X2. NO FURTHER NEEDS, CALL LIGHT IN REACH. pt IN GOOD SPIRITS AND IS AWAKE AND WATCHING COOKING SHOW ON TV.
--- NOTE | 2021-02-01 03:18 | NUR ---
ROUNDED ON pt, MORNING ASSESSMENT COMPLETE. NO ACUTE CHANGES. PRN TYLENOL GIVEN FOR 7/10 PAIN IN LEFT FOOT AND BACK, SEE EMAR. SPO2 93% ON RA, HR 70'S. DRESSING REMAINS C/D/I, BLE REMAIN ELEVATED IN BED WITH PILLOWS IN PLACE. BSC EMPTIED, NO FURTHER NEEDS. CALL LIGHT IN REACH.
--- NOTE | 2021-02-01 04:39 | NUR ---
VS AND I&O'S COMPLETE. DAILY WEIGHT ALSO DONE. pt RESTING ON HER RIGHT SIDE, NO FURTHER NEEDS. CALL LIGHT IN REACH.
--- NOTE | 2021-02-01 06:50 | NUR ---
DR MNUOZ IN ROOM TO COMPLETE DRESSING CHANGE. THIS RN ASSISTED WITH DRESSING CHANGE. DR MUNOZ TO UPDATE ORDERS REGARDING DRESSING AND DRESSING CHANGES TO LEFT FOOT.
--- NOTE | 2021-02-01 08:00 | NUR ---
REPORT RECEIVED FROM NIGHT RN AND PT. CARE RESUMED. PT. IS ALERT, ORIENTED AND UP TO THE CHAIR EATING BREAKFAST. SHE REPORTS MILD BURNING IN RIGHT FOOT WOUND THAT IS TOLERABLE. DRESSING IS CDI AND CHANGED BY MD THIS MORNING. IV SITE WNL AND FLUSHES WELL. LUNGS DIM. IN BASES AND NIKI. PT. AMBULATED INDEPENDENTELY TO THE BATHROOM. SHE REQUESTED A FWW AND THIS NURSE BROUGHT ONE TO HER. DISCUSSED SAFETY, POC AND MEDS. LEFT RESTING WITH CALL LIGHT IN REACH.
--- NOTE | 2021-02-01 08:09 | NUR ---
THIS RN ASKED TO CHECK ON PT PT CALL LIGHT WAS PREVIOUSLY ON. THIS RN TO ROOM. PT FOUND ON HER KNEES AT HEAD OF BED. PT STATES "I WAS TRYING TO PLUG IN THIS CONTROLER. PT DENIES FALLING. PT ASSISTED BACK TO STAND. DENIES PAIN OR ANY OTHER NEW COMPLAINTS. 1 PERSON ASSIST UP TO CHAIR. STATES HER LINENS ARE WET. LINENS CHANGED. PT RESTING IN CHAIR AWAITING BREAKFAST. DATA REPORT ANALYST TO BEDSIDE TO WORK WITH PT. PERSONAL BELONGINGS WITHIN REACH. CALL LIGHT RECONECTED AND IN PTS HAND. PTS PRIMARY RN, DESMOND, AND CHARGE NURSE, JACQUIE, JOAQUIN.
--- NOTE | 2021-02-01 09:05 | NUR ---
DR MUNOZ CALLED TO FLOOR REQUESTING LEFT FOOT XRAY BE DONE. ORDER PLACED.
--- NOTE | 2021-02-01 10:45 | NUR ---
Spoke with Arpita. She plans on dc today. She is now stating their home will be complete on the 15 of the month. They do not have any house hold items and she and daughter will be sleeping on an air mattress or their one recliner. She states when she gets discharged they ar going to go pots and pans. I gave her the names of the used stores in town. She also states she would like a new smaller walker. We discussed medicare will send the standard size for height and weight. She then states she doesn't want one. I suggested she go to [facility] as they lend and sell walkers. I gave her their print out with address and phone number.
--- NOTE | 2021-02-01 11:36 | NUR ---
PT'S. LEGS WRAPPED WITH KIERRA BANDAGES. PT. BECAME TEARFUL AFTER DISCUSSION WITH MD REGARDING OSTEOMYLITIS. PT. REASSURED AND UPDATED ABOUT POC AND EDUCATED. LEFT RESTING WITH CALL LIGHT IN REACH.
--- NOTE | 2021-02-01 12:05 | NUR ---
PT ALERT, STANDING UP STRETCHING. PT PLEASANT, DIDN'T SLEEP WELL. HOPES TO DC SAT. PT REQUESTED PRAYER, STILL LIVING IN MOTEL UNTIL HOUSE IS READY THE 15TH DISCOURAGED BECAUSE HAVE NO FURNITURE. NEED TO FURNISH ENTIRE HOME, GAVE SOME POSSIBLE RESOURCES. WILL FOLLOW NEEDED
--- NOTE | 2021-02-01 12:05 | NUR ---
IV SITE ROTATED PER POLICY. NEW IV PLACED IN RIGHT FOREARM, 20G. PT. TOLERATED WELL. LEFT UPPER ARM REMOVED WITH CATH INTACT AND PT. EDUCATED. COMMODE EMPTIED AND PT. LEFT RESTING WITH CALL LIGHT IN REACH.
--- NOTE | 2021-02-01 19:25 | NUR ---
SHIFT REPORT RECEIVED FROM DAYSHIFT RN DESMOND AT BEDSIDE. pt AWAKE AND RESTING IN BED, ON RA. RR EVEN AND UNLABORED. DURING SHIFT REPORT, pt REPORTED FEELING DIZZY EARLIER IN DAYSHIFT AROUND 1600 AND REPORTED FEELING "DISORIENTED". pt A/OX4 AT THIS TIME, DIZZINESS RESOLVED. pt DID NOT REPORT DIZZINESS TO DAYSHIFT AT TIME DIZZINESS OCCURED. pt INSTRUCTRED TO USE CALL LIGHT BEFORE GETTING OOB FOR SAFETY AND TO NOTIFY DOCK COORDINATOR IF DIZZINESS RETURNS. pt VERALIZED UNDERSTANDING. CALL LIGHT IN REACH.
--- NOTE | 2021-02-01 19:56 | NUR ---
IN TO PROVIDE PT SOME WATER, WHITEBOARD UPDATED
--- NOTE | 2021-02-01 20:17 | NUR ---
call light answered, prn pain medication given for 8/10 pain in left foot. no further needs. call light in reach.
--- NOTE | 2021-02-01 22:50 | NUR ---
SPOKE TO TELEPHARMACY REGARDING DOSE AND TIMING OF pt'S VANCO. PER TELEPHARMACY, OKAY TO GIVE AT SCHEDULED TIME. ASSESSMENT COMPLETE, IV SITE PAINFUL WHEN FLUSHED. SMALL INFILTRATION NOTED. THIS RN ATTEMPTE TO PLACE NEW IV, UNSUCCESSFUL. TOURNIQUET REMOVED. FLOOR TRADER JUSTIN AWARE AND WILL ATTEMPT NEW IV. LEFT FOOT DRESSING C/D/I, BLE ELEVATED IN BED TOLERAED. BILATERAL KIERRA WRAPS ALSO IN PLACE TO HELP WITH EDEMA. NO FURTHER NEEDS, CALL LIGHT IN REACH.
--- NOTE | 2021-02-01 23:21 | NUR ---
IN ROOM TO ADMINISTER NEB TRT. PT DENIES FURTHER NEEDS, CALL LIGHT IS CLOSE.
--- NOTE | 2021-02-02 00:05 | NUR ---
NEW IV SUCCESSFULLY STARTED BY HAWK IBARRA, 20G LEFT HAND. IV VANCO INFUSING DIRECTED. IV SITE WNL. PRN TYLENOL ALSO GIVEN, SEE EMAR. pt EMOTIONAL REGARDING HOSPITALIZATION AND EVENTS. THERAPEUTIC COMMUNICATION PROVIDED, CALL LIGHT IN REACH. NO FURTHER NEEDS.
--- NOTE | 2021-02-02 01:19 | NUR ---
IV ABX COMPLETE, IV IS NOW SL. PT DENIES FURTHER NEEDS. CALL LIGHT IS CLOSE.
--- NOTE | 2021-02-02 04:28 | NUR ---
pt AWOKE TO VOICE, DENIED NEEDS. ONLY STATED, "I'M JUST TIRED". ASSESSMENT COMPLETE, BLE KIERRA WRAPS REMAINS IN PLACE. DRESSING TO LEFT FOOT REMAINS C/D/I. BSC EMPTIED, CALL LIGHT IN REACH. pt ALLOWED TO REST, WILL MONITOR FOR CHANGES.
--- NOTE | 2021-02-02 05:03 | NUR ---
pt EMOTIONAL AT START OF SHIFT REGARDING HOSPITALIZATION, THERAPEUTIC COMMUNICATION PROVDED. VSS, pt ON RA. NEW IV PLACED TO LEFT HAND. SALINE LOCKED WITH SCHEDULED ROCEPHIN AND VANCO. SCHEDULED VANCO TROUGH FOR 829. pt SBA WITH AMBULATION, BLE KIERRA WRAPS IN PLACE WITH DRESSING TO LEFT FOOT-C/D/I. OSTEOMYLITIS NOTED TO LEFT FOOT. IV SALINE LOCKED. pt VOIDING QS, NO BM THIS SHIFT. 60G CARB DIET, TOLERATING WELL. NO NAUSEA REPORTED, 1600MLS FLUID RESTRICTION.
--- NOTE | 2021-02-02 06:05 | NUR ---
pt AWAKE AND RESTING IN BED, RECENTLY UP FOR DAILY WEIGHT WITH BASEBALL GLOVE SHAPER ASHER. NO NEEDS VERBALIZED, CALL LIGHT IN REACH.
--- NOTE | 2021-02-02 07:10 | NUR ---
Report received from Mirian ARECHIGA. Pt resting in bed with eyes closed, even and unlabored respirations. No apparent needs at this time, will continue plan of care.
--- NOTE | 2021-02-02 08:55 | NUR ---
Scheduled medications administered, assessment complete. Pt transfers self to [facility] to void. KIERRA wraps on legs, 2-3+ edema in BLE. Pt drowsy, but states no c/o of pain, nausea. IV ABX infusing. SS insulin administered, 100% meal eaten. Fluid restriction WNL. VSS, I/Os complete.
--- NOTE | 2021-02-02 10:00 | NUR ---
IV pump alarming, rocephin IV complete. Pt saline locked at this time. She states no needs, call light in reach.
--- NOTE | 2021-02-02 10:15 | NUR ---
IV Vanco dose received from pharmacy and hung, pt resting in bed with no needs, call light in reach
[2021-02-02] MEDS ORDERED: DOXYCYCLINE HY100 MG PO (10:34)
[2021-02-02] MEDS ORDERED: CEPHALEXIN500 MG PO (10:35)
[2021-02-02] MEDS ORDERED: PROBIOTIC1 EAC2 PO (10:35)
[2021-02-02] MEDS ORDERED: FUROSEMIDE40 MG PO (10:38)
[2021-02-02] MEDS ORDERED: SEMGLEE100 UNIT/1 SUB-Q (10:39)
--- NOTE | 2021-02-02 11:27 | NUR ---
Discharge teaching provided to patient who verbalizes understanding regarding DASH eating plan, edema care, wound care, diabetic diet and management and CHF management. IV removed WNL. VSS, A+O. All belongings returned, pt has no questions. Daughter to provide ride home.
== END 2021-02-02 11:35 | disposition home or self-care (01) | DRG 292 ==
LOC: ED 16:35 → MS 21:31
PROVIDERS: ADMIT Internal Medicine; ATTEND Internal Medicine
DX: I50.33 Acute on chronic diastolic (congestive) heart failure (principal); M86.8X7 Other osteomyelitis, ankle and foot; Z20.822 Contact with and (suspected) exposure to COVID-19; E10.621 Type 1 diabetes mellitus with foot ulcer; L97.529 Non-pressure chronic ulcer of other part of left foot with unspecified severity; E10.69 Type 1 diabetes mellitus with other specified complication; I08.1 Rheumatic disorders of both mitral and tricuspid valves; I27.20 Pulmonary hypertension, unspecified; R94.31 Abnormal electrocardiogram [ECG] [EKG]; E10.65 Type 1 diabetes mellitus with hyperglycemia; I25.10 Atherosclerotic heart disease of native coronary artery without angina pectoris; E10.42 Type 1 diabetes mellitus with diabetic polyneuropathy; J44.9 Chronic obstructive pulmonary disease, unspecified; F17.210 Nicotine dependence, cigarettes, uncomplicated; I25.2 Old myocardial infarction; Z86.73 Personal history of transient ischemic attack (TIA), and cerebral infarction without residual deficits; Z85.3 Personal history of malignant neoplasm of breast; Z95.1 Presence of aortocoronary bypass graft; Z95.5 Presence of coronary angioplasty implant and graft; Z90.710 Acquired absence of both cervix and uterus; Z88.0 Allergy status to penicillin; Z88.8 Allergy status to other drugs, medicaments and biological substances; Z79.4 Long term (current) use of insulin
CPT/HCPCS: 71045; 73620; 73630; 80048; 80053; 80500; 83036; 83735; 83880; 84484; 85025; 93005; 93010; 93306; 94640; 94760; 96374; 99285-25; A9270; C9803; J0696; J1815; J1940; J2405; J3370; J7060; U0003

== ENCOUNTER 2021-04-15 22:54 | Emergency (ER) | payer OTHER ==
[~2021-04-15] VITALS: Ht 175.3 cm; Wt 95.3 kg
[~2021-04-15 22:54] MED LIST changes: +BUMETANIDE1 MG PO; +CEPHALEXIN500 MG PO; +DOXYCYCLINE HY100 MG PO; +FREESTYLE LIBR1 EAC2; +FUROSEMIDE40 MG PO; +HUMALOG100 UNITS/ SUB-Q; +HYDROCODON-ACE1 EA10 PO; +LO-DOSE ASPIRIN81 MG PO; +LOSARTAN POTASS25 MG PO; +METOCLOPRAMIDE10 MG PO; +METOPROLOL TART25 MG PO; +NEURONTIN300 MG PO; +NITROGLYCERIN0.4 MG SL; +PROBIOTIC1 EAC2 PO; +SEMGLEE100 UNIT/1 SUB-Q; +SPIRONOLACTONE25 MG PO
--- OUTSIDE RECORDS SUMMARY | 2021-04-15 22:56 | XMS ---
PreManage Notification: NILAY KINGSLEY Security Application Coordinator Events No recent Security Events currently on file CRITERIA MET - Group Notification - PDMP CARE PROVIDERS ANEL JUSTIN [facility] Current PHONE: Unknown Kanchan has no Care Guidelines for this patient. [facility] VISIT COUNT (12 MO.) 1 [facility] 3 [facility] TOTAL 4 NOTE: Visits indicate total known visits. ED/UCC VISIT TRACKING (12 MO.) 04/15/2021 22:55 [facility] TYPE: Emergency COMPLAINT: - SOB 01/25/2021 16:36 [facility] TYPE: Emergency COMPLAINT: - DIFFICULTY BREATHING 01/11/2021 10:43 [facility] TYPE: Emergency COMPLAINT: - L FOOT WOUND, [...] limited to breakdown of skin [facility] 19[facility] COMPLAINT: - LEG PAIN - Foot Pain DIAGNOSES: - Unspecified otitis externa, left ear - Presence of unspecified artificial ankle joint - Periprosthetic fracture around other internal prosthetic joint, initial encounter - Otitis media, unspecified, left ear - Unspecified mastoiditis, unspecified ear INPATIENT VISIT TRACKING (12 MO.) 01/25/2021 21:31 [facility] TYPE: Medical Surgical COMPLAINT: - CHF DIAGNOSES: - Allergy status to other drugs, medicaments and biological substances - Rheumatic disorders of both mitral and tricuspid valves - Presence of coronary angioplasty implant and graft - 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 - Personal history of transient ischemic attack (TIA), and cerebral infarction without residual deficits - Old myocardial infarction - Atherosclerotic heart disease of [place] coronary artery without angina pectoris - Type 1 diabetes mellitus with foot ulcer - Non-pressure chronic ulcer of other part of left foot with unspecified severity - Type 1 diabetes mellitus with hyperglycemia - Type 1 diabetes mellitus with diabetic polyneuropathy - Personal history of malignant neoplasm of breast - Pulmonary hypertension, unspecified - Presence of aortocoronary bypass graft - Acute on chronic diastolic (congestive) heart failure - Nicotine dependence, cigarettes, uncomplicated - Other osteomyelitis, ankle and foot - Chronic obstructive pulmonary disease, unspecified - Type 1 diabetes mellitus with other specified complication - Abnormal electrocardiogram [ECG] [EKG] - Allergy status to penicillin - Acquired absence of both cervix and uterus [email or web address]
--- NOTE | 2021-04-16 13:48 | EKG ---
[facility] [address] [place] [address] Signed Sinus tachycardia Nonspecific ST and T wave abnormality Abnormal ECG When compared with ECG of 25-JAN-2021 17:22, premature ventricular complexes are no longer present T wave inversion no longer evident in Inferior leads T wave inversion no longer evident in Lateral leads Confirmed by AARON BANKS MD ([id number]) on 04/16/2021 1:48:43 PM Electronically Signed By: AARON BANKS MD 04/16/21 1348 PATIENT NAME: NILAY KINGSLEY [facility] Electrocardiogram DATE OF : 56 PHYSICIAN: AARON BANKS MD REPORT #: [id number] REPORT IS CONFIDENTIAL AND NOT TO BE RELEASED WITHOUT AUTHORIZATION
== END 2021-04-16 09:26 | disposition short-term general hospital (02) ==
LOC: ED 22:54
DX: I21.4 Non-ST elevation (NSTEMI) myocardial infarction (principal); J44.9 Chronic obstructive pulmonary disease, unspecified; E10.9 Type 1 diabetes mellitus without complications; E87.5 Hyperkalemia; M31.9 Necrotizing vasculopathy, unspecified; Z20.822 Contact with and (suspected) exposure to COVID-19; I50.9 Heart failure, unspecified; Z85.3 Personal history of malignant neoplasm of breast; Z88.0 Allergy status to penicillin; Z88.8 Allergy status to other drugs, medicaments and biological substances; Z79.899 Other long term (current) drug therapy; Z79.4 Long term (current) use of insulin; Z79.82 Long term (current) use of aspirin
CPT/HCPCS: 36415; 71045; 80053; 80503; 83735; 83880; 84132; 84484; 85025; 85610; 85730; 93005; 93010; 96374; 96375; 96376; 99285-25; C9803; J1644; J1815; J2270; U0003